=== PATIENT | female | born 1950 | race Caucasian/White ===

== ENCOUNTER 2024-05-01 17:07 | Emergency (ER) | payer MEDICARE ==
[~2024-05-01] VITALS: Ht 165.1 cm; Wt 53.0 kg
[2024-05-01 18:26] LABS: BASOPHILS % (AUTO) 0.7 % (0-1); EOSINOPHILS # (AUTO) 0.2 X10'3 (0-0.9); EOSINOPHILS % (AUTO) 3.2 % (0-6); LYMPHOCYTES % (AUTO) 13.6 % (21-51); MEAN CORPUSCULAR HEMOGLOBIN 29.7 PG (27.0-31.0); MEAN CORPUSCULAR HGB CONC 33.3 g/dL (33.0-36.5); MEAN CORPUSCULAR VOLUME 89.3 FL (78-98); MEAN PLATELET VOLUME 8.8 FL (7.4-10.4); MONOCYTES # (AUTO) 0.2 X10'3 (0-0.9); MONOCYTES % (AUTO) 3.1 % (2-12); NEUTROPHILS # (AUTO) 5.6 X10'3 (1.8-7.7); NEUTROPHILS % (AUTO) 79.4 % (42-75); PLATELET COUNT 172 X10'3 (140-440); RED BLOOD COUNT 4.37 X10'6 (4.20-5.60); RED CELL DISTRIBUTION WIDTH 15.4 % (11.5-14.5)
[2024-05-01 18:38] LABS: APTT 23 SECONDS (22-32); PROTHROMBIN TIME 10.7 SECONDS (9.0-12.0)
[2024-05-01 18:41] LABS: ALANINE AMINOTRANSFERASE 241 U/L (12-78); ALBUMIN 3.7 G/DL (3.4-5.0); ALKALINE PHOSPHATASE 109 IU/L (46-116); ANION GAP 5 (8-16); ASPARTATE AMINO TRANSFERASE 119 U/L (10-37); BLOOD UREA NITROGEN 22 MG/DL (7-18); BUN/CREATININE RATIO 22.9 (10.0-20.0); CALCIUM 8.5 MG/DL (8.5-10.1); CHLORIDE 103 MMOL/L (99-107); CREATININE 0.96 MG/DL (0.40-0.90); GLUCOSE 91 MG/DL (70-104); POTASSIUM 3.5 MMOL/L (3.5-5.1); SODIUM 136 MMOL/L (135-145); TOTAL CARBON DIOXIDE 28.1 MMOL/L (24-32); TOTAL PROTEIN 7.3 G/DL (6.4-8.2); eCRCL 44 ML/MIN; eGFR 57 ML/MIN
[2024-05-01 19:25] LABS: BILIRUBIN,URINE NEGATIVE (Neg); CLARITY,URINE CLEAR (Clear); COLOR,URINE YELLOW (Yellow); GLUCOSE, URINE NEGATIVE (Neg); KETONES,URINE NEGATIVE (Neg); LEUKOCYTE ESTERASE ,URINE TRACE (Neg); NITRITES, URINE NEGATIVE (Neg); OCCULT BLOOD,URINE NEGATIVE (Neg); PH,URINE 6.5 (4.8-8.0); PROTEIN,URINE NEGATIVE (Neg)
[2024-05-01 19:29] LABS: UA COLLECTION TYPE CLN CATCH MIDSTREAM
[2024-05-01 19:34] LABS: BACTERIA,URINE FEW /HPF (Neg); MUCUS STRANDS MODERATE /LPF (Neg); RBC,URINE 0-2 /HPF (0-2); SQUAMOUS EPITHELIAL CELL,UR FEW /LPF (FEW)
[2024-05-01 20:23] VITALS: BP 127/78; PULSE 65; RESP 14; TEMP 98.5; O2SAT 99
== END 2024-05-01 20:36 | disposition home or self-care (01) ==
LOC: ER 17:07
DX: Z71.1 Person with feared health complaint in whom no diagnosis is made (principal); Z85.118 Personal history of other malignant neoplasm of bronchus and lung; R50.9 Fever, unspecified; R11.0 Nausea
CPT/HCPCS: 36415; 71045; 80053; 81001; 83605; 84145; 85025; 85610; 85730; 87040; 87088; 87502; 87503; 93005; 99285

== ENCOUNTER 2024-05-09 13:31 | Emergency (ER) | payer MEDICARE ==
[~2024-05-09] VITALS: Ht 165.1 cm; Wt 53.0 kg
[2024-05-09 13:43] VITALS: BP 125/77; PULSE 74; RESP 16; TEMP 98.3; O2SAT 99
== END 2024-05-09 15:20 | disposition home or self-care (01) ==
LOC: ER 13:31
DX: S50.11XA Contusion of right forearm, initial encounter (principal); X58.XXXA Exposure to other specified factors, initial encounter; Y93.89 Activity, other specified; Y92.89 Other specified places as the place of occurrence of the external cause; Y99.8 Other external cause status; Z85.118 Personal history of other malignant neoplasm of bronchus and lung
CPT/HCPCS: 93971; 99284